=== PATIENT | female | born 1990 | race Caucasian/White ===

== ENCOUNTER 2017-02-21 10:49 | Emergency (ER) | payer OTHER ==
[2017-02-21] MEDS ORDERED: ACETAMINOPHEN TAB 500 MG TAB PO STA (11:18)
[2017-02-21] MEDS ORDERED: ONDANSETRON ODT 4 MG TAB PO STA (11:18)
--- NOTE | 2017-02-21 12:32 | ED ---
Nausea/Vomiting/Diarrhea HPI - General Chief complaint: Nausea/Vomiting/Diarrhea Stated complaint: flu like symptoms Time Seen by Provider: 02/21/17 11:09 Source: patient Mode of arrival: ambulatory Limitations: no limitations - History of Present Illness Initial comments: This 26-year-old white female presents with a complaint of some nausea as well as 3 episodes of vomiting. She had one episode of diarrhea. Symptoms came on yesterday and she had to leave work. She's had some chills and myalgias and hot flashes. She denies any actual known fever or temperature. She denies any upper respiratory symptoms. She denies any known sick contacts. She denies any possibility of . There is no abdominal pain or blood in her stool or vomitus. No other complaints or modifying factors. - Related Data Home Medications Medication Instructions Recorded Confirmed Airborne 1 tab PO DAILY 02/21/17 02/21/17 Multivit with Calcium,Iron,Min 1 tab PO DAILY 02/21/17 02/21/17 [Women's Multivitamin] Previous Rx's Medication Instructions Recorded Ondansetron [Zofran ODT] 8 mg PO Q8HR PRN #12 tab 02/21/17 Allergies Allergy/AdvReac Type Severity Reaction Status Date / Time No Known Allergies Allergy Verified 02/21/17 11:03 Review of Systems ROS Statement: Those systems with pertinent positive or pertinent negative responses have been documented in the HPI. ROS Other: All systems not noted in ROS Statement are negative. Past Medical History Past Medical History: No Reported History History of Any Multi-Drug Resistant Organisms: None Reported Past Surgical History: Cholecystectomy Additional Past Surgical History / Comment(s): ovarian cyst removed Past Psychological History: No Psychological Hx Reported Smoking Status: Current every day smoker Past Alcohol Use History: Occasional Past Drug Use History: None Reported General Exam - General Exam Comments Initial Comments: GENERAL: The patient is well nourished and well hydrated. VITAL SIGNS: Heart rate, blood pressure, respiratory rate reviewed as recorded in nurse's notes. EYES: Pupils are round and reactive. Extraocular movements are intact. No conjunctival / lid redness or swelling. ENT: No external evidence of injury, swelling, or ecchymosis. Airway is patent. Throat is clear. NECK: Nontender. No swelling or evidence of injury. No subcutaneous emphysema. Trachea is midline. No thyroid mass. HEART: Regular rate and rhythm. Good peripheral pulses. LUNGS/CHEST: Breath sounds clear and equal bilaterally. No rales, rhonchi, or wheezes. No ecchymosis, subcutaneous emphysema, or tenderness. ABDOMEN: Abdomen soft without tenderness. No palpable masses or organomegaly. No peritoneal signs. No abdominal wall swelling or ecchymosis. EXTREMITIES: No extremity tenderness. Normal muscle tone and function. No thoracolumbar tenderness. NEUROLOGIC: Sensation is grossly intact. Cranial nerve exam reveals face is symmetrical, tongue is midline, speech is clear. SKIN: No abrasions or ecchymosis is noted. No induration or masses noted. PSYCHIATRIC: Alert and oriented. Appropriate behavior and judgment. Limitations: no limitations Course Vital Signs 02/21/17 11:02 Temperature 98.3 F Pulse Rate 94 Respiratory 20 Rate Blood Pressure 118/65 O2 Sat by Pulse 98 Oximetry Medical Decision Making - Medical Decision Making The patient was seen and examined. The influenza was negative. It is felt that she likely has a degree of gastroenteritis. She is feeling better on recheck after receiving some Zofran. Diet and hydration therapy is discussed as well. She leaves in no identifiable distress. - Lab Data Lab Results 02/21/17 Range/Units 11:41 Influenza Type A RNA Not Detected (Not Detectd) Influenza Type B (PCR) Not Detected (Not Detectd) Disposition Clinical Impression: Gastroenteritis Disposition: HOME SELF-CARE Condition: Good Instructions: Gastroenteritis (ED) Additional Instructions: Please use Tylenol if needed for any chills or pain. Prescriptions: Ondansetron [Zofran ODT] 8 mg PO Q8HR PRN #12 tab PRN Reason: Nausea Referrals: None,Stated [Primary Care Provider] - 1-2 days Time of Disposition: 12:31
[2017-02-21 13:01] VITALS: BP 106/54; PULSE 76; RESP 16; TEMP 98.1
== END 2017-02-21 13:00 | disposition home or self-care (01) ==
LOC: EC 10:49
DX: K52.9 Noninfective gastroenteritis and colitis, unspecified (principal); N95.1 Menopausal and female climacteric states; R11.2 Nausea with vomiting, unspecified; F17.200 Nicotine dependence, unspecified, uncomplicated; Z79.899 Other long term (current) drug therapy; Z90.49 Acquired absence of other specified parts of digestive tract
CPT/HCPCS: 87502; 99284